=== PATIENT | female | born 1985 | race Caucasian/White ===

== ENCOUNTER 2018-10-08 13:51 | Emergency (ER) | payer OTHER ==
[~2018-10-08] VITALS: Ht 160 cm; Wt 74.8 kg
[~2018-10-08 13:51] MED LIST: AZIT250T PO; METH4TAB2 PO
[2018-10-08 14:18] LABS: BASO # 0.1 x10^3/uL (0.0-0.2); BASO % 1 % (0-3); EOS # 0.2 x10^3/uL (0.0-0.7); EOS % 2 % (0-3); HEMATOCRIT 42.9 % (36.0-47.0); HEMOGLOBIN 14.6 g/dL (12.0-15.5); LYMPH # 2.5 x10^3/uL (1.0-4.8); LYMPH % 28 % (24-48); MEAN CORPUSCULAR HEMOGLOBIN 30 pg (25-35); MEAN CORPUSCULAR HGB CONC 34 g/dL (31-37); MEAN CORPUSCULAR VOLUME 89 fL (79-100); MONO # 0.6 x10^3/uL (0.0-1.1); MONO % 6 % (0-9); NEUT # 5.7 x10^3uL (1.8-7.7); NEUT % 63 % (31-73); PLATELET COUNT 170 x10^3/uL (140-400); RED BLOOD COUNT 4.83 x10^6/uL (3.50-5.40); RED CELL DISTRIBUTION WIDTH 13.5 % (11.5-14.5); WHITE BLOOD COUNT 9.2 x10^3/uL (4.0-11.0)
--- NOTE | 2018-10-08 14:24 | PHYS DOC ---
Past History Past Medical History: Depression Past Surgical History: No Surgical History Alcohol Use: Rarely Drug Use: None Adult General Chief Complaint Chief Complaint: CHEST PAIN HPI HPI 33-year-old female presents with chest pain. Patient states that she has had central chest pain that started 2 days ago. It is intermittent. She describes it as a tightness. She denies shortness of breath or diaphoresis. She has had pain like this before and was diagnosed with "inflamed chest" and placed on prednisone for a week. This resolved her symptoms previously. Patient has no cardiac history. She denies any drug use. Nothing seems to make the pain better or worse except pressing on the area does increase the pain. She denies any rash , fever or chills. Review of Systems Review of Systems Constitutional: Denies fever or chills [] Eyes: Denies change in visual acuity, redness, or eye pain [] HENT: Denies nasal congestion or sore throat [] Respiratory: Denies cough or shortness of breath [] Cardiovascular: No additional information not addressed in HPI [] GI: Denies abdominal pain, nausea, vomiting, bloody stools or diarrhea [] : Denies dysuria or hematuria [] Musculoskeletal: Denies back pain or joint pain [] Integument: Denies rash or skin lesions [] Neurologic: Denies headache, focal weakness or sensory changes [] Endocrine: Denies polyuria or polydipsia [] All other systems were reviewed and found to be within normal limits, except as documented in this note. Allergies Allergies Allergies Coded Allergies Type Severity Reaction Last Updated Verified amoxicillin Allergy Severe hives & rash 11/24/14 Yes clavulanic acid Allergy Severe hives & rash 11/24/14 Yes Physical Exam Physical Exam Constitutional: Well developed, well nourished, no acute distress, non-toxic appearance. [] HENT: Normocephalic, atraumatic, bilateral external ears normal, oropharynx moist, no oral exudates, nose normal. [] Eyes: PERRLA, EOMI, conjunctiva normal, no discharge. [] Neck: Normal range of motion, no tenderness, supple, no stridor. [] Cardiovascular:Heart rate regular rhythm, no murmur [] Lungs & Thorax: Bilateral breath sounds clear to auscultation. Mid sternal tenderness with palpation. [] Abdomen: Bowel sounds normal, soft, no tenderness, no masses, no pulsatile masses. [] Skin: Warm, dry, no erythema, no rash. [] Back: No tenderness, no CVA tenderness. [] Extremities: No tenderness, no cyanosis, no clubbing, ROM intact, no edema. [] Neurologic: Alert and oriented X 3, normal motor function, normal sensory function, no focal deficits noted. [] Psychologic: Affect normal, judgement normal, mood normal. [] Current Patient Data Vital Signs Vital Signs Date Time Temp Pulse Resp B/P (MAP) Pulse Ox O2 Delivery O2 Flow Rate FiO2 10/08/18 14:17 97.9 71 18 98 Room Air Lab Results Laboratory Tests Test 10/08/18 14:08 White Blood Count 9.2 x10^3/uL (4.0-11.0) Red Blood Count 4.83 x10^6/uL (3.50-5.40) Hemoglobin 14.6 g/dL (12.0-15.5) Hematocrit 42.9 % (36.0-47.0) Mean Corpuscular Volume 89 fL (79-100) Mean Corpuscular Hemoglobin 30 pg (25-35) Mean Corpuscular Hemoglobin Concent 34 g/dL (31-37) Red Cell Distribution Width 13.5 % (11.5-14.5) Platelet Count 170 x10^3/uL (140-400) Neutrophils (%) (Auto) 63 % (31-73) Lymphocytes (%) (Auto) 28 % (24-48) Monocytes (%) (Auto) 6 % (0-9) Eosinophils (%) (Auto) 2 % (0-3) Basophils (%) (Auto) 1 % (0-3) Neutrophils # (Auto) 5.7 x10^3uL (1.8-7.7) Lymphocytes # (Auto) 2.5 x10^3/uL (1.0-4.8) Monocytes # (Auto) 0.6 x10^3/uL (0.0-1.1) Eosinophils # (Auto) 0.2 x10^3/uL (0.0-0.7) Basophils # (Auto) 0.1 x10^3/uL (0.0-0.2) EKG EKG Sinus rhythm, rate 54, normal axis, no ST elevations or depressions.[] Radiology/Procedures Radiology/Procedures [] Impressions: Chest, 2 views, 10/08/2018: HISTORY: Chest pain The heart size is normal. No pulmonary infiltrate is seen. There is no evidence of pleural fluid. IMPRESSION: No acute cardiopulmonary abnormality is detected. Electronically signed by: Brandon Blair MD (10/08/2018 3:07 PM) [facility] DICTATED AND SIGNED BY: BRANDON BLAIR MD DATE: 10/08/18 [id number] CC: TANI GONZALEZ DO; KAZ CARSON DO ~ Course & Med Decision Making Course & Med Decision Making Pertinent Labs and Imaging studies reviewed. (See chart for details) The patient's labs are unremarkable. Her troponin is negative. Her chest x-rays negative. Her EKG is unremarkable. The chest inflammation at the patient previously described sounds like pleurisy or a musculoskeletal inflammatory process. It is not unreasonable to do 5 days of steroids. I will discharge her with 30 mg of prednisone daily for 5 days. She is stable for discharge at this time. [] Dragon Disclaimer Dragon Disclaimer This electronic medical record was generated, in whole or in part, using a voice recognition dictation system. Departure Departure: Impression: Primary Impression: Chest wall pain Disposition: HOME, SELF-CARE Condition: STABLE Referrals: TANI GONZALEZ DO (PCP) Patient Instructions: Pleurisy, Psgv-ey-Xyvy Scripts Prednisone (PREDNISONE) 10 Mg Tablet 30 MG PO DAILY for pleurisy for 5 Days, #15 TAB Prov: KAZ CARSON DO 10/08/18 KAZ CARSON DO Oct 08, 2018 14:24
[2018-10-08 14:31] LABS: ALBUMIN 3.8 g/dL (3.4-5.0); ALBUMIN/GLOBULIN RATIO 1.1 (1.0-1.7); CALCIUM 8.8 mg/dL (8.5-10.1); CREATININE 0.9 mg/dL (0.6-1.0); POTASSIUM 3.9 mmol/L (3.5-5.1); TOTAL BILIRUBIN 0.3 mg/dL (0.2-1.0); TOTAL PROTEIN 7.2 g/dL (6.4-8.2)
--- NOTE | 2018-10-08 15:10 | RAD ---
Chest, 2 views, 10/08/2018: HISTORY: Chest pain The heart size is normal. No pulmonary infiltrate is seen. There is no evidence of pleural fluid. IMPRESSION: No acute cardiopulmonary abnormality is detected. Electronically signed by: Brandon Blair MD (10/08/2018 3:07 PM) [facility]
[2018-10-08] MEDS ORDERED: PRED-220 PO (15:21)
[2018-10-08 15:33] VITALS: BP 109/69
--- NOTE | 2018-10-09 13:10 | EKG ---
[address] [address] Test Date: 2018-10-08 Test Time: 14:14:57 Pat Name: DALTON BARRAGAN Department: Room: Gender: F Manager Registration: : 1985 Requested By: KAZ CARSON Order Number: [id number] Reading MD: Kenneth Gaines MD Measurements Intervals [place] Rate: 54 P: 36 VT: 142 QRS: 47 QRSD: 76 T: 39 QT: 424 QTc: 404 Interpretive Statements SINUS RHYTHM NON-SPECIFIC ST/T CHANGES Electronically Signed On 10-10-2018 9:10:10 CDT by Kenneth Gaines MD
== END 2018-10-08 15:37 | disposition home or self-care (01) ==
LOC: ER 13:51
DX: R07.89 Other chest pain (principal); F32.9 Major depressive disorder, single episode, unspecified; Z88.1 Allergy status to other antibiotic agents
CPT/HCPCS: 36415; 71046; 80053; 81025; 84484; 85025; 93005; 99284

== ENCOUNTER 2019-01-17 12:24 | Emergency (ER) | payer OTHER ==
[~2019-01-17 12:24] MED LIST changes: +PRED-220 PO
[2019-01-17 12:39] VITALS: BP 124/68
[2019-01-17] MEDS ORDERED: FLUC150T PO (12:44)
--- NOTE | 2019-01-17 12:45 | PHYS DOC ---
Past History Past Medical History: Depression Past Surgical History: No Surgical History Alcohol Use: Rarely Drug Use: None Adult General Chief Complaint Chief Complaint: URINARY FREQUENCY HPI HPI Patient is a 34-year-old female who presents with complaint of vaginal itching and thick discharge. Patient states that she has a history of yeast infections and she was recently started on Keflex. She states that symptoms are exactly like prior yeast infections and she states that she typically will get a yeast infection when she takes antibiotics.[] Review of Systems Review of Systems Constitutional: Denies fever or chills [] Respiratory: Denies cough or shortness of breath [] Cardiovascular: No additional information not addressed in HPI [] : Positive vaginal itching and discharge[] Allergies Allergies Allergies Coded Allergies Type Severity Reaction Last Updated Verified amoxicillin Allergy Severe hives & rash 11/24/14 Yes clavulanic acid Allergy Severe hives & rash 11/24/14 Yes Physical Exam Physical Exam Constitutional: Well developed, well nourished, no acute distress, non-toxic appearance. [] Cardiovascular:Heart rate regular rhythm, no murmur [] Lungs & Thorax: Bilateral breath sounds clear to auscultation [] Skin: Warm, dry, no erythema, no rash. [] EKG EKG [] Radiology/Procedures Radiology/Procedures [] Course & Med Decision Making Course & Med Decision Making Pertinent Labs and Imaging studies reviewed. (See chart for details) [] Dragon Disclaimer Dragon Disclaimer This electronic medical record was generated, in whole or in part, using a voice recognition dictation system. Departure Departure: Impression: Primary Impression: Vaginal yeast infection Disposition: HOME, SELF-CARE Condition: STABLE Referrals: PCP,UNKNOWN (PCP) Patient Instructions: Vaginitis, Monilial Scripts Fluconazole (DIFLUCAN) 150 Mg Tablet 1 TAB PO ONCE for infection, #1 TAB 1 Refill Prov: MOMO EARL Jr. DO 01/17/19 MOMO EARL Jr. DO Jan 17, 2019 12:45
== END 2019-01-17 12:51 | disposition home or self-care (01) ==
LOC: ER 12:24
DX: B37.3 Candidiasis of vulva and vagina (principal); Z88.1 Allergy status to other antibiotic agents
CPT/HCPCS: 99283

== ENCOUNTER 2019-03-24 19:53 | Emergency (ER) | payer OTHER ==
[~2019-03-24] VITALS: Ht 160 cm; Wt 79.0 kg
[~2019-03-24 19:53] MED LIST changes: +FLUC150T PO
[2019-03-24 21:42] LABS: U PREG PATIENT NEGATIVE (NEG)
[2019-03-24 21:45] LABS: BACTERIA,URINE FEW /HPF (0-FEW); BILIRUBIN,URINE NEG (NEG); CLARITY,URINE HAZY; COLOR,URINE YELLOW; GLUCOSE,URINE NEG (NEG); NITRITE,URINE NEG (NEG); RBC,URINE OCC /HPF (0-2); SQUAMOUS EPITHELIAL CELL,UR FEW /LPF; UROBILINOGEN,URINE 0.2 mg/dL (0.2 mg/dL); WBC,URINE OCC /HPF (0-4)
[2019-03-24 21:59] LABS: BARBITURATES NEG (NEG); BENZODIAZEPINES NEG (NEG); CANNABINOIDS NEG (NEG); COCAINE NEG (NEG); METHADONE NEG (NEG); OPIATES NEG (NEG); PHENCYCLIDINE NEG (NEG)
[2019-03-24 22:13] LABS: AMPHETAMINE/METHAMPHETAMINE NEG (NEG)
--- NOTE | 2019-03-25 00:41 | ED.ADGEN ---
Past History Past Medical History: Anxiety, Depression Past Surgical History: Cholecystectomy Alcohol Use: Occasionally Drug Use: None Adult General Chief Complaint Chief Complaint ".. I ve been sick since sunday... diarrhea.. abdomen discomfort..." HPI HPI Patient is a 34 year old female who presents with above hx and complaints of abdomen whitehead. Follows at [place]. Hx. cholecystectomy. No history of bad food intake. No history of travel. No specific ill contacts. Patient up-to-date with vaccinations. Review of Systems Review of Systems Constitutional: Denies fever or chills [] Eyes: Denies change in visual acuity, redness, or eye pain [] HENT: Denies nasal congestion or sore throat [] Respiratory: Denies cough or shortness of breath [] Cardiovascular: No additional information not addressed in HPI [] GI: Plaints of mild generalized abdominal pain, nausea, and diarrhea [] : Denies dysuria or hematuria [] Musculoskeletal: Denies back pain or joint pain [] Integument: Denies rash or skin lesions [] Neurologic: Denies headache, focal weakness or sensory changes [] Endocrine: Denies polyuria or polydipsia [] All other systems were reviewed and found to be within normal limits, except as documented in this note. Family History Family History Noncontributory Current Medications Current Medications Current Medications Medications (Trade) Dose Ordered Sig/Adan Start Time Stop Time Status Last Admin Dose Admin Famotidine (Pepcid Vial) 20 mg 1X ONCE 03/25/19 01:00 03/25/19 01:01 DC 03/25/19 01:49 20 MG Lactated Ringer's 1,000 ml @ 1,000 mls/hr Q1H 03/25/19 01:00 03/25/19 01:59 DC 03/25/19 01:49 1,000 MLS/HR Ondansetron HCl (Zofran) 8 mg 1X ONCE 03/25/19 01:00 03/25/19 01:01 DC 03/25/19 01:49 8 MG Allergies Allergies Allergies Coded Allergies Type Severity Reaction Last Updated Verified amoxicillin Allergy Severe hives & rash 11/24/14 Yes clavulanic acid Allergy Severe hives & rash 11/24/14 Yes vancomycin Allergy Intermediate Rash 03/24/19 Yes Physical Exam Physical Exam Constitutional: Moderate distress, non-toxic appearance. [] HENT: Normocephalic, atraumatic, bilateral external ears normal, oropharynx moist, no oral exudates, nose normal. [] Eyes: PERRLA, EOMI, conjunctiva normal, no discharge. [] Neck: Normal range of motion, no tenderness, supple, no stridor. [] Cardiovascular:Heart rate regular rhythm, no murmur [] Lungs & Thorax: Bilateral breath sounds clear to auscultation [] Abdomen: Bowel sounds are hyperactive soft, mild generalized tenderness. Old surgery scars. No focal rebound. Skin: Warm, dry, no erythema, no rash. [] Back: No tenderness, no CVA tenderness. [] Extremities: No tenderness, no cyanosis, no clubbing, ROM intact, no edema. [] Neurologic: Alert and oriented X 3, normal motor function, normal sensory function, no focal deficits noted. [] Psychologic: Affect normal, judgement normal, mood normal. [] Current Patient Data Vital Signs Vital Signs Date Time Temp Pulse Resp B/P (MAP) Pulse Ox O2 Delivery O2 Flow Rate FiO2 03/25/19 03:15 58 18 115/82 (93) 97 Room Air 03/24/19 19:53 98.3 Lab Results Laboratory Tests Test 03/24/19 20:45 03/24/19 21:00 Urine Collection Type Unknown Urine Color Yellow Urine Clarity Hazy Urine pH 6.0 Urine Specific [place] >=1.030 Urine Protein Neg (NEG-TRACE) Urine Glucose (UA) Neg mg/dL (NEG) Urine Ketones (Stick) Neg mg/dL (NEG) Urine Blood Neg (NEG) Urine Nitrite Neg (NEG) Urine Bilirubin Neg (NEG) Urine Urobilinogen Dipstick 0.2 mg/dL (0.2 mg/dL) Urine Leukocyte Esterase Neg (NEG) Urine RBC Occ /HPF (0-2) Urine WBC Occ /HPF (0-4) Urine Squamous Epithelial Cells Few /LPF Urine Bacteria Few /HPF (0-FEW) Urine Mucus Slight /LPF Urine Test Negative (NEG) Urine Opiates Screen Neg (NEG) Urine Methadone Screen Neg (NEG) Urine Barbiturates Neg (NEG) Urine Phencyclidine Screen Neg (NEG) Urine Amphetamine/Methamphetamine Neg (NEG) Urine Benzodiazepines Screen Neg (NEG) Urine Cocaine Screen Neg (NEG) Urine Cannabinoids Screen Neg (NEG) Urine Ethyl Alcohol Neg (NEG) White Blood Count 9.5 x10^3/uL (4.0-11.0) Red Blood Count 4.65 x10^6/uL (3.50-5.40) Hemoglobin 14.6 g/dL (12.0-15.5) Hematocrit 42.8 % (36.0-47.0) Mean Corpuscular Volume 92 fL (79-100) Mean Corpuscular Hemoglobin 31 pg (25-35) Mean Corpuscular Hemoglobin Concent 34 g/dL (31-37) Red Cell Distribution Width 12.5 % (11.5-14.5) Platelet Count 190 x10^3/uL (140-400) Neutrophils (%) (Auto) 59 % (31-73) Lymphocytes (%) (Auto) 30 % (24-48) Monocytes (%) (Auto) 7 % (0-9) Eosinophils (%) (Auto) 3 % (0-3) Basophils (%) (Auto) 1 % (0-3) Neutrophils # (Auto) 5.6 x10^3uL (1.8-7.7) Lymphocytes # (Auto) 2.9 x10^3/uL (1.0-4.8) Monocytes # (Auto) 0.7 x10^3/uL (0.0-1.1) Eosinophils # (Auto) 0.2 x10^3/uL (0.0-0.7) Basophils # (Auto) 0.1 x10^3/uL (0.0-0.2) Sodium Level 141 mmol/L (136-145) Potassium Level 4.1 mmol/L (3.5-5.1) Chloride Level 103 mmol/L (98-107) Carbon Dioxide Level 29 mmol/L (21-32) Anion Gap 9 (6-14) Blood Urea Nitrogen 18 mg/dL (7-20) Creatinine 1.0 mg/dL (0.6-1.0) Estimated GFR (Cockcroft-Gault) 64.3 Glucose Level 74 mg/dL (70-99) Calcium Level 8.8 mg/dL (8.5-10.1) Total Bilirubin 0.1 mg/dL (0.2-1.0) L Direct Bilirubin < 0.1 mg/dL (0.0-0.2) Aspartate Amino Transferase (AST) 22 U/L (15-37) Alanine Aminotransferase (ALT) 22 U/L (14-59) Alkaline Phosphatase 89 U/L (46-116) Troponin I Quantitative < 0.017 ng/mL (0-0.055) Total Protein 7.4 g/dL (6.4-8.2) Albumin 3.6 g/dL (3.4-5.0) Amylase Level 52 U/L (25-115) Lipase 160 U/L (73-393) EKG EKG [] Radiology/Procedures Radiology/Procedures [][address] [address] IMAGING REPORT Signed PATIENT: DALTON BARRAGAN EACCOUNT: [id number] : 1985 LOCATION: ER AGE: 34 SEX: F EXAM STATUS: REG ER ORD. PHYSICIAN: PENNY CHILDRESS MD REASON: pain PROCEDURE: ACUTE ABDOMEN SERIES PA chest and AP upright supine abdomen x-rays HISTORY: Abdominal pain. FINDINGS: Heart and mediastinum are unremarkable. No pulmonary opacities or pleural effusions. No pneumoperitoneum. Cholecystectomy clips. Mild volume of stool. No dilated bowel loops or abnormal air-fluid levels. Bones and soft tissues are unremarkable. IMPRESSION: No evidence of bowel obstruction. No acute process in the chest. Electronically signed by: Ki Toussaint MD (03/25/2019 3:56 AM) [facility] DICTATED AND SIGNED BY: KI TOUSSAINT MD DATE: 03/25/19 0356 CC: PENNY CHILDRESS MD; PCP,UNKNOWN ~ Course & Med Decision Making Course & Med Decision Making Pertinent Labs and Imaging studies reviewed. (See chart for details) She stay on a clear fluid diet only for the next 2 days. No solids no milk products. Must allow bowel rest. Push fluids. Take Tylenol and ibuprofen for discomfort. For nausea and vomiting take Zofran 8 mg up 4 times a day. Follow-up primary care. Return if any concerns. [] Final Impression Final Impression 1. Abdomen Pain 2. Diarrhea[] 3. Viral Syndrome Dragon Disclaimer Dragon Disclaimer This electronic medical record was generated, in whole or in part, using a voice recognition dictation system. Dragon Disclaimer This chart was dictated in whole or in part using Voice Recognition software in a busy, high-work load, and often noisy Emergency Department environment. It may contain unintended and wholly unrecognized errors or omissions. PENNY CHILDRESS MD Mar 25, 2019 00:41
[2019-03-25] MEDS ORDERED: FAMOTIDINE 20 MG/2 ML VIAL IVP ONE (01:00)
[2019-03-25] MEDS ORDERED: IV RINGERS SOLUTION,LACTATED 1,000 ML IV SCH (01:00)
[2019-03-25] MEDS ORDERED: ONDANSETRON PF 4 MG/2 ML VIAL. IV ONE (01:00)
[2019-03-25 02:05] LABS: BASO # 0.1 x10^3/uL (0.0-0.2); BASO % 1 % (0-3); EOS # 0.2 x10^3/uL (0.0-0.7); EOS % 3 % (0-3); HEMATOCRIT 42.8 % (36.0-47.0); HEMOGLOBIN 14.6 g/dL (12.0-15.5); LYMPH # 2.9 x10^3/uL (1.0-4.8); LYMPH % 30 % (24-48); MEAN CORPUSCULAR HEMOGLOBIN 31 pg (25-35); MEAN CORPUSCULAR HGB CONC 34 g/dL (31-37); MEAN CORPUSCULAR VOLUME 92 fL (79-100); MONO # 0.7 x10^3/uL (0.0-1.1); MONO % 7 % (0-9); NEUT # 5.6 x10^3uL (1.8-7.7); NEUT % 59 % (31-73); PLATELET COUNT 190 x10^3/uL (140-400); RED BLOOD COUNT 4.65 x10^6/uL (3.50-5.40); RED CELL DISTRIBUTION WIDTH 12.5 % (11.5-14.5); WHITE BLOOD COUNT 9.5 x10^3/uL (4.0-11.0)
[2019-03-25 02:13] LABS: ALBUMIN 3.6 g/dL (3.4-5.0); ALK PHOS 89 U/L (46-116); ALT (SGPT) 22 U/L (14-59); AMYLASE 52 U/L (25-115); ANION GAP 9 (6-14); AST (SGOT) 22 U/L (15-37); BLOOD UREA NITROGEN 18 mg/dL (7-20); CALCIUM 8.8 mg/dL (8.5-10.1); CARBON DIOXIDE 29 mmol/L (21-32); CHLORIDE 103 mmol/L (98-107); GFR 64.3; GLUCOSE 74 mg/dL (70-99); LIPASE 160 U/L (73-393); SODIUM 141 mmol/L (136-145); TOTAL BILIRUBIN 0.1 mg/dL (0.2-1.0); TOTAL PROTEIN 7.4 g/dL (6.4-8.2)
[2019-03-25 02:26] LABS: DIRECT BILIRUBIN < 0.1 mg/dL (0.0-0.2); POTASSIUM 4.1 mmol/L (3.5-5.1)
[2019-03-25] MEDS ORDERED: HYDR-1179 PO (02:51)
[2019-03-25] MEDS ORDERED: ONDA8TAB9 PO (02:51)
[2019-03-25 03:15] VITALS: BP 115/82
--- NOTE | 2019-03-25 03:59 | RAD ---
PA chest and AP upright supine abdomen x-rays HISTORY: Abdominal pain. FINDINGS: Heart and mediastinum are unremarkable. No pulmonary opacities or pleural effusions. No pneumoperitoneum. Cholecystectomy clips. Mild volume of stool. No dilated bowel loops or abnormal air-fluid levels. Bones and soft tissues are unremarkable. IMPRESSION: No evidence of bowel obstruction. No acute process in the chest. Electronically signed by: Darinel Toussaint MD (03/25/2019 3:56 AM) [facility]
== END 2019-03-25 03:15 | disposition home or self-care (01) ==
LOC: ER 19:53
DX: B34.9 Viral infection, unspecified (principal); R19.7 Diarrhea, unspecified; Z90.49 Acquired absence of other specified parts of digestive tract; Z88.1 Allergy status to other antibiotic agents
CPT/HCPCS: 36415; 74022; 80048; 80076; 80307; 81001; 81025; 82150; 83690; 84484; 85025; 96361; 96374; 96375; 99285; J2405; J3490; J7120

== ENCOUNTER → 2019-05-20 | Outpatient (CLI) | payer OTHER ==
[~2019-05-20] MED LIST changes: +HYDR-1179 PO; +IOHEXOL 300 MG/ML 75 ML VIAL. IV ONE; +ONDA8TAB9 PO
--- NOTE | 2019-05-20 13:36 | RAD ---
RS Compliance Statement: One or more of the following individualized dose reduction techniques were utilized for this examination: 1. Automated exposure control 2. Adjustment of the mA and/or kV according to patient size 3. Use of iterative reconstruction technique CT head and maxillofacial without contrast 05/20/2019 12:00 AM INDICATION: Infection of the left eye. Headache. COMPARISON: CT head 12/18/2012 TECHNIQUE: Multiple axial CT images of the head were obtained from skull base through the vertex with and without intravenous contrast. Multiple axial CT images of the maxillofacial structures were obtained with and without intravenous contrast. Coronal and sagittal reformats are provided. FINDINGS: Head and maxillofacial: Ventricles, sulci and basal cisterns are within normal limits. There is no hydrocephalus. Willams-white matter differentiation is normal. There is no acute intracranial hemorrhage. There is no mass, mass effect or midline shift. Posterior fossa is normal in appearance. Left periorbital soft tissue swelling is identified. No intraorbital abnormality. Osseous orbits are intact. Globes are spherical and contour. There is no lens dislocation. Extraocular muscles are intact. No intraconal or extraconal mass is identified. Skull base is intact. Cavernous sinuses are normal in appearance. Nasal bones are intact. Nasal septum is predominantly midline. Mild mucosal thickening of the left sphenoid sinus is identified. Otherwise, paranasal sinuses are well aerated. No acute fracture of the paranasal sinuses is identified. Pterygoid plates are intact. IMPRESSION: 1. No acute intracranial hemorrhage. 2. Left sided preseptal periorbital cellulitis without post septal extension. There is no subperiosteal abscess. Electronically signed by: Sandra Quinteros MD (05/20/2019 1:33 PM) [facility]
== END | disposition home or self-care (01) ==
LOC: CT 12:31
PROVIDERS: ATTEND Optometrist
DX: L03.213 Periorbital cellulitis (principal); M79.89 Other specified soft tissue disorders
CPT/HCPCS: 70496; Q9967

== ENCOUNTER 2019-08-05 08:57 | Emergency (ER) | payer OTHER ==
[~2019-08-05] VITALS: Ht 160 cm; Wt 84.1 kg
[~2019-08-05 08:57] MED LIST changes: -IOHEXOL 300 MG/ML 75 ML VIAL. IV ONE
[2019-08-05] MEDS ORDERED: METOCLOPRAMIDE HCL 10 MG/2 ML VIAL. ONE (09:21)
[2019-08-05] MEDS ORDERED: diphenhydrAMINE 50 MG/ML VIAL ONE (09:21)
[2019-08-05] MEDS ORDERED: diphenhydrAMINE 50 MG/ML VIAL IVP ONE (09:30)
[2019-08-05] MEDS ORDERED: IV NORMAL SALINE 1,000ML 1,000 ML IV ONE (09:30)
[2019-08-05] MEDS ORDERED: METOCLOPRAMIDE HCL 10 MG/2 ML VIAL. IVP ONE (09:30)
[2019-08-05 09:45] LABS: BASO # 0.1 x10^3/uL (0.0-0.2); BASO % 1 % (0-3); EOS # 0.1 x10^3/uL (0.0-0.7); EOS % 2 % (0-3); HEMOGLOBIN 14.6 g/dL (12.0-15.5); LYMPH # 2.4 x10^3/uL (1.0-4.8); LYMPH % 24 % (24-48); MEAN CORPUSCULAR HEMOGLOBIN 30 pg (25-35); MEAN CORPUSCULAR HGB CONC 33 g/dL (31-37); MEAN CORPUSCULAR VOLUME 90 fL (79-100); MONO # 0.7 x10^3/uL (0.0-1.1); MONO % 7 % (0-9); NEUT # 6.5 x10^3uL (1.8-7.7); NEUT % 65 % (31-73); PLATELET COUNT 169 x10^3/uL (140-400); RED BLOOD COUNT 4.89 x10^6/uL (3.50-5.40); RED CELL DISTRIBUTION WIDTH 13.2 % (11.5-14.5); WHITE BLOOD COUNT 9.9 x10^3/uL (4.0-11.0)
--- NOTE | 2019-08-05 09:45 | PHYS DOC ---
Past History Past Medical History: Anxiety, Depression, Sinusitis Past Surgical History: Cholecystectomy, Other Additional Past Surgical Histo: left knee Alcohol Use: None Drug Use: None Adult General Chief Complaint Chief Complaint: HEADACHE HPI HPI 34-year-old female presents with headache since yesterday afternoon. The patient is . Her last menstrual period was in May. She has had a positive home test as well as a confirmed office test. She is not having any bleeding or cramping. She is therefore a headache she states is a pressure sen sation behind her eyes. This is typical of her headaches. She got headaches frequently with her previous . She knows she is limited in what she can take so she came here for treatment. The patient has been eating and drinking normally. She has been trying to stay hydrated. She denies any falls or trauma. Denies fever or chills. Review of Systems Review of Systems Constitutional: Denies fever or chills [] Eyes: Denies change in visual acuity, redness, or eye pain [] HENT: Denies nasal congestion or sore throat [] Respiratory: Denies cough or shortness of breath [] Cardiovascular: No additional information not addressed in HPI [] GI: Denies abdominal pain, nausea, vomiting, bloody stools or diarrhea [] : Denies dysuria or hematuria [] Musculoskeletal: Denies back pain or joint pain [] Integument: Denies rash or skin lesions [] Neurologic: Headache. Denies focal weakness or sensory changes [] Endocrine: Denies polyuria or polydipsia [] All other systems were reviewed and found to be within normal limits, except as documented in this note. Current Medications Current Medications Current Medications Medications (Trade) Dose Ordered Sig/Adan Start Time Stop Time Status Last Admin Dose Admin Diphenhydramine HCl (Benadryl) 50 mg STK-MED ONCE 08/05/19 09:21 08/05/19 09:21 DC Metoclopramide HCl (Reglan Vial) 10 mg STK-MED ONCE 08/05/19 09:21 08/05/19 09:22 DC Sodium Chloride 1,000 ml @ 1,000 mls/hr 1X ONCE 08/05/19 09:30 08/05/19 10:29 08/05/19 09:31 1,000 MLS/HR Allergies Allergies Allergies Coded Allergies Type Severity Reaction Last Updated Verified amoxicillin Allergy Severe hives & rash 08/05/19 Yes clavulanic acid Allergy Severe hives & rash 08/05/19 Yes vancomycin Allergy Intermediate Rash 08/05/19 Yes Physical Exam Physical Exam Constitutional: Well developed, well nourished, no acute distress, non-toxic appearance. [] HENT: Normocephalic, atraumatic, bilateral external ears normal, oropharynx moist, no oral exudates, nose normal. [] Eyes: Photophobia. PERRLA, EOMI, conjunctiva normal, no discharge. [] Neck: Normal range of motion, no tenderness, supple, no stridor. [] Cardiovascular: Heart rate regular rhythm, no murmur [] Lungs & Thorax: Bilateral breath sounds clear to auscultation [] Abdomen: Bowel sounds normal, soft, no tenderness, no masses, no pulsatile masses. [] Skin: Warm, dry, no erythema, no rash. [] Back: No tenderness, no CVA tenderness. [] Extremities: No tenderness, no cyanosis, no clubbing, ROM intact, no edema. [] Neurologic: Alert and oriented X 3, normal motor function, normal sensory function, no focal deficits noted. [] Psychologic: Affect normal, judgement normal, mood normal. [] Current Patient Data Vital Signs Vital Signs Date Time Temp Pulse Resp B/P (MAP) Pulse Ox O2 Delivery O2 Flow Rate FiO2 08/05/19 09:05 98.8 95 18 119/86 (97) 98 Room Air EKG EKG [] Radiology/Procedures Radiology/Procedures [] Course & Med Decision Making Course & Med Decision Making Pertinent Labs and Imaging studies reviewed. (See chart for details) Patient's labs are unremarkable. Her urinalysis is suggestive of UTI. Given her , I will treat her with Keflex for 3 days. For her headache and given a 1 L normal saline, 10 mg of Reglan, and 25 mg of Benadryl. Her headache has reduced from an 8 to a 5. She feels well enough to go home. She is stable for discharge at this time. [] Dragon Disclaimer Dragon Disclaimer This electronic medical record was generated, in whole or in part, using a voice recognition dictation system. Departure Departure: Impression: Primary Impression: Headache Additional Impression: UTI (urinary tract infection) during Disposition: HOME, SELF-CARE Condition: IMPROVED Referrals: TAMMY BUCKLEY PA-C (PCP) Patient Instructions: - Urinary Tract Infection Scripts Fluconazole (DIFLUCAN) 150 Mg Tablet 1 TAB PO ONCE for yeast infection, #1 TAB 1 Refill Prov: KAZ CARSON DO 08/05/19 Cephalexin (KEFLEX) 500 Mg Capsule 1 CAP PO TID for UTI for 5 Days, #15 CAP 0 Refills Prov: KAZ CARSON DO 08/05/19 Problem Qualifiers Primary Impression: Headache Headache type: other vascular headache Qualified Codes: G44.1 - Vascular headache, not elsewhere classified Additional Impression: UTI (urinary tract infection) during Trimester: first trimester Qualified Codes: O23.41 - Unspecified infection of urinary tract in , first trimester KAZ CARSON DO Aug 05, 2019 09:45
[2019-08-05 09:52] LABS: CALCIUM 8.8 mg/dL (8.5-10.1); CREATININE 0.8 mg/dL (0.6-1.0); GFR 83.1; POTASSIUM 3.8 mmol/L (3.5-5.1)
[2019-08-05 09:56] LABS: BACTERIA,URINE MOD /HPF (0-FEW); BILIRUBIN,URINE NEG (NEG); CLARITY,URINE CLOUDY; COLOR,URINE YELLOW; GLUCOSE,URINE NEG (NEG); NITRITE,URINE NEG (NEG); SQUAMOUS EPITHELIAL CELL,UR MANY /LPF; UROBILINOGEN,URINE 0.2 mg/dL (0.2 mg/dL)
[2019-08-05 09:58] LABS: ALBUMIN 3.6 g/dL (3.4-5.0); ALBUMIN/GLOBULIN RATIO 0.9 (1.0-1.7); TOTAL BILIRUBIN 0.2 mg/dL (0.2-1.0); TOTAL PROTEIN 7.6 g/dL (6.4-8.2)
[2019-08-05] MEDS ORDERED: FLUC150T PO (11:07)
[2019-08-05] MEDS ORDERED: CEPH-264 PO (11:07)
[2019-08-05 11:15] VITALS: BP 112/60
== END 2019-08-05 11:15 | disposition home or self-care (01) ==
LOC: ER 08:57
DX: O26.891 Other specified pregnancy related conditions, first trimester (principal); G44.1 Vascular headache, not elsewhere classified; O23.41 Unspecified infection of urinary tract in pregnancy, first trimester; O99.341 Other mental disorders complicating pregnancy, first trimester; F41.9 Anxiety disorder, unspecified; F32.9 Major depressive disorder, single episode, unspecified; Z3A.00 Weeks of gestation of pregnancy not specified; Z88.1 Allergy status to other antibiotic agents; Z88.8 Allergy status to other drugs, medicaments and biological substances
CPT/HCPCS: 36415; 80053; 81001; 85025; 87086; 96374; 96375; 99285; J1200; J2765; J7030

== ENCOUNTER 2019-08-09 01:08 | Emergency (ER) | payer OTHER ==
[~2019-08-09] VITALS: Ht 160 cm; Wt 83.9 kg
[~2019-08-09 01:08] MED LIST changes: +CEPH-264 PO
[2019-08-09] MEDS ORDERED: ONDANSETRON PF 4 MG/2 ML VIAL. ONE (01:10)
[2019-08-09] MEDS ORDERED: FAMOTIDINE 20 MG/2 ML VIAL ONE (01:11)
[2019-08-09] MEDS ORDERED: IV NORMAL SALINE 1,000ML 1,000 ML IV ONE (01:30)
[2019-08-09 01:43] LABS: BASO # 0.1 x10^3/uL (0.0-0.2); BASO % 1 % (0-3); EOS # 0.1 x10^3/uL (0.0-0.7); EOS % 1 % (0-3); HEMATOCRIT 45.3 % (36.0-47.0); HEMOGLOBIN 15.5 g/dL (12.0-15.5); LYMPH % 7 % (24-48); MEAN CORPUSCULAR HEMOGLOBIN 30 pg (25-35); MEAN CORPUSCULAR HGB CONC 34 g/dL (31-37); MEAN CORPUSCULAR VOLUME 88 fL (79-100); MONO # 0.5 x10^3/uL (0.0-1.1); MONO % 4 % (0-9); NEUT # 11.3 x10^3uL (1.8-7.7); NEUT % 87 % (31-73); PLATELET COUNT 172 x10^3/uL (140-400); RED BLOOD COUNT 5.14 x10^6/uL (3.50-5.40); RED CELL DISTRIBUTION WIDTH 13.3 % (11.5-14.5); WHITE BLOOD COUNT 12.9 x10^3/uL (4.0-11.0)
[2019-08-09] MEDS ORDERED: FAMOTIDINE 20 MG/2 ML VIAL IVP ONE (01:45)
[2019-08-09] MEDS ORDERED: ONDANSETRON PF 4 MG/2 ML VIAL. IVP ONE (01:45)
[2019-08-09 01:50] LABS: CREATININE 0.8 mg/dL (0.6-1.0); GFR 83.1
[2019-08-09 01:55] LABS: ALBUMIN/GLOBULIN RATIO 1.1 (1.0-1.7); MAGNESIUM 1.8 mg/dL (1.8-2.4); TOTAL BILIRUBIN 0.5 mg/dL (0.2-1.0); TOTAL PROTEIN 7.8 g/dL (6.4-8.2)
[2019-08-09 01:56] LABS: BILIRUBIN,URINE NEG (NEG); CLARITY,URINE CLEAR; COLOR,URINE YELLOW; GLUCOSE,URINE NEG (NEG)
[2019-08-09 01:57] LABS: BACTERIA,URINE FEW /HPF (0-FEW); NITRITE,URINE NEG (NEG); RBC,URINE OCC /HPF (0-2); SQUAMOUS EPITHELIAL CELL,UR FEW /LPF; WBC,URINE OCC /HPF (0-4)
[2019-08-09 02:01] LABS: INFLUENZA A PATIENT NEGATIVE (NEGATIVE); INFLUENZA B PATIENT NEGATIVE (NEGATIVE)
[2019-08-09 02:15] VITALS: BP 114/78
[2019-08-09] MEDS ORDERED: ONDA4TAB12 PO (02:18)
[2019-08-09] MEDS ORDERED: FAMO-63 PO (02:18)
--- NOTE | 2019-08-09 02:19 | PHYS DOC ---
Past History Past Medical History: Anxiety, Depression, Sinusitis Past Surgical History: Cholecystectomy, Other Additional Past Surgical Histo: left knee Smoking: Cigarettes Alcohol Use: None Drug Use: None Adult General Chief Complaint Chief Complaint: VOMITING IN HPI HPI 34-year-old female presents as with report of nausea and vomiting 3 episodes which started at 1700 this evening. Patient does report some generalized malaise. Patient is unsure if she might have contracted influenza or if she is just experiencing morning sickness. Denies trauma. Denies fever or chills. Patient does report recent diagnosis of urinary tract infection for which she is currently taking Keflex. Denies vaginal bleeding or discharge. Review of Systems Review of Systems Constitutional: Denies fever or chills; reports generalized malaise Eyes: Denies redness or eye pain HENT: Denies nasal congestion or sore throat Respiratory: Reports cough; denies shortness of breath Cardiovascular: Denies chest pain or palpitations GI: Denies abdominal pain; reports nausea and vomiting /COUNTY NURSE: Denies dysuria or hematuria; reports ; denies vaginal bleeding or discharge Musculoskeletal: Denies back pain or joint pain Integument: Denies rash or skin lesions Neurologic: Denies headache, focal weakness or sensory changes Complete systems were reviewed and found to be within normal limits, except as documented in this note. Current Medications Current Medications Current Medications Medications (Trade) Dose Ordered Sig/Adan Start Time Stop Time Status Last Admin Dose Admin Famotidine (Pepcid Vial) 20 mg 1X ONCE 08/09/19 01:45 08/09/19 01:50 DC 08/09/19 01:32 20 MG Ondansetron HCl (Zofran) 4 mg 1X ONCE 08/09/19 01:45 08/09/19 01:50 DC 08/09/19 01:33 4 MG Sodium Chloride 1,000 ml @ 1,000 mls/hr 1X ONCE 08/09/19 01:30 08/09/19 02:29 08/09/19 01:31 1,000 MLS/HR Allergies Allergies Allergies Coded Allergies Type Severity Reaction Last Updated Verified amoxicillin Allergy Severe hives & rash 08/05/19 Yes clavulanic acid Allergy Severe hives & rash 08/05/19 Yes vancomycin Allergy Intermediate Rash 08/05/19 Yes Physical Exam Physical Exam Constitutional: Well developed, well nourished, no acute distress, non-toxic appearance HENT: Normocephalic, atraumatic, oropharynx moist Eyes: Conjunctiva normal, no discharge Neck: Normal range of motion, no tenderness, supple Cardiovascular: Heart rate normal, regular rhythm Lungs & Thorax: Bilateral breath sounds clear to auscultation, no wheezing/rales/rhonchi Abdomen: Soft, no tenderness, no guarding/rebound tenderness/distention Skin: Warm, dry, no erythema, no rash Extremities: No tenderness, ROM intact, no edema Neurologic: Alert and oriented X 3, no focal deficits noted Psychologic: Affect normal, judgement normal Current Patient Data Vital Signs Vital Signs Date Time Temp Pulse Resp B/P (MAP) Pulse Ox O2 Delivery O2 Flow Rate FiO2 08/09/19 01:08 97.5 100 18 112/60 (77) 98 Room Air Lab Results Laboratory Tests Test 08/09/19 01:14 08/09/19 01:22 08/09/19 01:25 Urine Collection Type Unknown Urine Color Yellow Urine Clarity Clear Urine pH 8.5 Urine Specific Fitzpatrick 1.020 Urine Protein 30 mg/dl (NEG-TRACE) Urine Glucose (UA) Neg mg/dL (NEG) Urine Ketones (Stick) Trace mg/dL (NEG) Urine Blood Neg (NEG) Urine Nitrite Neg (NEG) Urine Bilirubin Neg (NEG) Urine Urobilinogen Dipstick 1.0 mg/dL (0.2 mg/dL) Urine Leukocyte Esterase Neg (NEG) Urine RBC Occ /HPF (0-2) Urine WBC Occ /HPF (0-4) Urine Squamous Epithelial Cells Few /LPF Urine Bacteria Few /HPF (0-FEW) Urine Mucus Slight /LPF White Blood Count 12.9 x10^3/uL (4.0-11.0) H Red Blood Count 5.14 x10^6/uL (3.50-5.40) Hemoglobin 15.5 g/dL (12.0-15.5) Hematocrit 45.3 % (36.0-47.0) Mean Corpuscular Volume 88 fL (79-100) Mean Corpuscular Hemoglobin 30 pg (25-35) Mean Corpuscular Hemoglobin Concent 34 g/dL (31-37) Red Cell Distribution Width 13.3 % (11.5-14.5) Platelet Count 172 x10^3/uL (140-400) Neutrophils (%) (Auto) 87 % (31-73) H Lymphocytes (%) (Auto) 7 % (24-48) L Monocytes (%) (Auto) 4 % (0-9) Eosinophils (%) (Auto) 1 % (0-3) Basophils (%) (Auto) 1 % (0-3) Neutrophils # (Auto) 11.3 x10^3uL (1.8-7.7) H Lymphocytes # (Auto) 1.0 x10^3/uL (1.0-4.8) Monocytes # (Auto) 0.5 x10^3/uL (0.0-1.1) Eosinophils # (Auto) 0.1 x10^3/uL (0.0-0.7) Basophils # (Auto) 0.1 x10^3/uL (0.0-0.2) Sodium Level 138 mmol/L (136-145) Potassium Level 4.0 mmol/L (3.5-5.1) Chloride Level 101 mmol/L (98-107) Carbon Dioxide Level 21 mmol/L (21-32) Anion Gap 16 (6-14) H Blood Urea Nitrogen 16 mg/dL (7-20) Creatinine 0.8 mg/dL (0.6-1.0) Estimated GFR (Cockcroft-Gault) 83.1 BUN/Creatinine Ratio 20 (6-20) Glucose Level 107 mg/dL (70-99) H Calcium Level 9.0 mg/dL (8.5-10.1) Magnesium Level 1.8 mg/dL (1.8-2.4) Total Bilirubin 0.5 mg/dL (0.2-1.0) Aspartate Amino Transferase (AST) 23 U/L (15-37) Alanine Aminotransferase (ALT) 29 U/L (14-59) Alkaline Phosphatase 69 U/L (46-116) Total Protein 7.8 g/dL (6.4-8.2) Albumin 4.0 g/dL (3.4-5.0) Albumin/Globulin Ratio 1.1 (1.0-1.7) Lipase 116 U/L (73-393) Influenza Type A (Rapid) Negative (NEGATIVE) Influenza Type B (Rapid) Negative (NEGATIVE) EKG EKG [] Radiology/Procedures Radiology/Procedures [] Course & Med Decision Making Course & Med Decision Making Pertinent Lab studies reviewed. (See chart for details) Patient presents as with report of nausea and vomiting which started at 1700 this evening. Abdomen non-peritoneal. Patient denies vaginal discharge or bleeding. Symptomatic treatment provided. IV fluid hydration given. Labs obtained and posted to chart. Rapid influenza negative. Patient stable for discharge with outpatient follow-up with PCP/OB. Discussed findings and plan with patient and friend, who acknowledge understanding and agreement. Dragon Disclaimer Dragon Disclaimer This electronic medical record was generated, in whole or in part, using a voice recognition dictation system. Departure Departure: Impression: Primary Impression: Nausea and vomiting Additional Impression: Disposition: HOME, SELF-CARE Condition: STABLE Referrals: NON,STAFF (PCP) Patient Instructions: ABCs of , Nausea and Vomiting, [id number] Scripts Famotidine (PEPCID) 20 Mg Tablet 1 TAB PO QHS for Gastritis, #20 TAB Prov: ASHLEY TANG DO 08/09/19 Ondansetron (ONDANSETRON ODT) 4 Mg Tab.rapdis 1 TAB PO PRN Q6-8HRS PRN for NAUSEA, #16 TAB Prov: ASHLEY TANG DO 08/09/19 Problem Qualifiers Primary Impression: Nausea and vomiting Vomiting type: unspecified Vomiting Intractability: non-intractable Q ualified Codes: R11.2 - Nausea with vomiting, unspecified Additional Impression: Weeks of gestation: unspecified Qualified Codes: Z34.90 - Encounter for supervision of normal , unspecified, unspecified trimester ASHLEY TANG DO Aug 09, 2019 02:19
== END 2019-08-09 02:45 | disposition home or self-care (01) ==
LOC: ER 01:08
DX: O21.9 Vomiting of pregnancy, unspecified (principal); O99.331 Smoking (tobacco) complicating pregnancy, first trimester; Z3A.00 Weeks of gestation of pregnancy not specified; Z88.1 Allergy status to other antibiotic agents
CPT/HCPCS: 36415; 80053; 81001; 83690; 83735; 84702; 85025; 87804; 96361; 96374; 96375; 99284; J2405; J3490; J7030

== ENCOUNTER 2020-12-16 08:58 | Emergency (ER) | payer OTHER ==
[~2020-12-16] VITALS: Ht 160 cm; Wt 88.8 kg
[~2020-12-16 08:58] MED LIST changes: +FAMO-63 PO; +ONDA4TAB12 PO
[2020-12-16 09:12] VITALS: BP 118/67
--- NOTE | 2020-12-16 09:15 | PHYS DOC ---
Past History Past Medical History: Anxiety, Depression, Sinusitis Past Surgical History: Cholecystectomy, Other Additional Past Surgical Histo: left knee Smoking: Cigarettes Alcohol Use: None Drug Use: None Adult General Chief Complaint Chief Complaint: CHEST PAIN HPI HPI Patient is a 35-year-old female presenting for chest pain. Onset was 4 hours prior to arrival that was noted shortly after waking up. No inciting event, trauma or ingestion. Certain body movements make worse, laying still makes better. Breathing does not alter pain. States pain is sharp and located over sternal bone, is reproducible with palpation, has been constant and rates pain 7/10 severity at present without radiation. Reports having history of similar pain in the past, was seen here in the past and had comprehensive work-up, treated for costochondritis with NSAIDs and steroid burst which she feels she needs again today. No fever, sick contacts, recent travel, ripping or tearing chest pain, shortness of breath, abdominal pain, dysuria. Review of Systems Review of Systems Fourteen body systems of review of systems have been reviewed. See HPI for pertinent positives and negative responses, other rodriguez all other systems are negative, non-pertinent or non-contributory Allergies Allergies Allergies Coded Allergies Type Severity Reaction Last Updated Verified amoxicillin Allergy Severe hives & rash 08/05/19 Yes clavulanic acid Allergy Severe hives & rash 08/05/19 Yes vancomycin Allergy Intermediate Rash 08/05/19 Yes Physical Exam Physical Exam Constitutional: Well developed, well nourished, no acute distress, non-toxic appearance. HENT: Normocephalic, atraumatic, bilateral external ears normal, oropharynx moist, no oral exudates, nose normal. Eyes: PERRLA, EOMI, conjunctiva normal, no discharge. Neck: Normal range of motion, no tenderness, supple, no stridor. Cardiovascular: Heart rate regular, sinus rhythm, no murmurs rubs or gallops Lungs & Thorax: Bilateral breath sounds clear to auscultation Abdomen: Bowel sounds normal, soft, no tenderness, no masses, no pulsatile masses. Nonsurgical abdomen, no peritoneal signs Skin: Warm, dry, no erythema, no rash. Back: No tenderness, no CVA tenderness. Extremities: No tenderness, no cyanosis, no clubbing, ROM intact, no edema. Neurologic: Alert and oriented X 3, grossly normal motor & sensory function, no focal deficits noted. Psychologic: Affect normal, judgement normal, mood normal. Current Patient Data Vital Signs Vital Signs Date Time Temp Pulse Resp B/P (MAP) Pulse Ox O2 Delivery O2 Flow Rate FiO2 12/16/20 09:12 98.3 87 23 118/67 (84) 98 Room Air Vital Signs Date Time Temp Pulse Resp B/P (MAP) Pulse Ox O2 Delivery O2 Flow Rate FiO2 12/16/20 09:12 98.3 87 23 118/67 (84) 98 Room Air Lab Results Laboratory Tests Test 12/16/20 09:27 Sodium Level 141 mmol/L Potassium Level 4.1 mmol/L Chloride Level 105 mmol/L Carbon Dioxide Level 25 mmol/L Anion Gap 11 Blood Urea Nitrogen 14 mg/dL Creatinine 0.9 mg/dL Estimated GFR (Cockcroft-Gault) 72.1 Glucose Level 125 mg/dL Calcium Level 8.4 mg/dL Troponin I Quantitative < 0.017 ng/mL DH-Nlb-S-Type Natriuretic Peptide 45 pg/mL Current Medications Medications (Trade) Dose Ordered Sig/Adan Route PRN Reason Start Time Stop Time Status Last Admin Dose Admin Aspirin (Roxana Aspirin) 325 mg 1X ONCE PO 12/16/20 09:45 12/16/20 09:46 DC 12/16/20 09:39 EKG EKG EKG ordered and interpreted by myself at 0925 hrs. as sinus rhythm at 68 bpm, unremarkable intervals, no axis deviation, no acute ischemic findings, no STEMI Radiology/Procedures Radiology/Procedures INDICATION: Reason: chest pain / Spl. Instructions: / History: COMPARISON: October 2018 FINDINGS: Single view of chest obtained. Cardiac silhouette is similar to prior. No definite focal airspace consolidation or pulmonary edema. IMPRESSION: * No focal airspace consolidation or edema. Electronically signed by: Sascha Quevedo MD (12/16/2020 9:49 AM) [id number] Heart Score C/O Chest Pain: Yes HEART Score for Chest Pain: HEART Score for Chest Pain Response (Comments) Value History Slighlty/Non-Suspicious 0 ECG Normal 0 Age < 45 0 Risk Factors 1 or 2 Risk Factors 1 Troponin < Normal Limit 0 Total 1 Risk Factors: Risk Factors: DM, Current or recent (<one month) smoker, HTN, HLP, family history of CAD, obesity. Risk Scores: Risk Factors: DM, Current or recent (<one month) smoker, HTN, HLP, family history of CAD, obesity. Course & Med Decision Making Course & Med Decision Making Discussed with the patient all findings and diagnostic testing. I discussed most likely diagnosis of likely noncardiac chest pain such as costochondritis that should resolve with supportive care practices. She is requesting steroid burst that helped her in the past, I do not think it is unreasonable to give low dose burst. I reviewed heart and PERC score, little indication for further diagnostic work-up and/or need for hospitalization at present. Nonetheless, I stressed need for close outpatient follow-up to review today's ER visit. I did disclose this might be an acute presentation of more concerning pathology and so, strict return precautions were also discussed at length with good understanding by patient. Patient voiced understanding and agreement with the plan. Patient knows to come back for repeat evaluation if concerning signs or symptoms present prior to outpatient follow-up. Hemodynamically stable, ambulatory and well-appearing at time of disposition. Dragon Disclaimer Dragon Disclaimer This electronic medical record was generated, in whole or in part, using a voice recognition dictation system. PERC Rule for PE PERC Rule for PE Response (Comments) Value Age > 50: No 0 Sa02 on room air <95%: No 0 Unilateral leg swelling: No 0 Hemoptysis: No 0 Recent surgery or trauma: No 0 Prior PE or DVT: No 0 Hormone use: No 0 Total 0 Departure Departure: Impression: Primary Impression: Chest pain, unspecified Disposition: 01 HOME / SELF CARE / HOMELESS Condition: STABLE Referrals: PCP,UNKNOWN (PCP) Patient Instructions: Chest Pain (Nonspecific), Costochondritis Additional Instructions: You were seen for chest pain. Your workup did not show any acute abnormalities today, but does not indicate that you do not have underlying cardiovascular disease. You have a history of costochondritis in the past, today might be a flare of this. As such, continued supportive care practices such as applying heating pads, Tylenol as needed for pain, Naprosyn which you have at home for pain, and close outpatient follow-up is advised. You do need to follow up with your primary doctor and/or can cleaner for further evaluation and treatment. You should return to the ED if you develop worsening chest pain, shortness of breath, fever, abnormal sweating, leg swelling, or any other new or concerning symptoms. It was a pleasure to take care of you and I wish you the best going forward Scripts Prednisone (PREDNISONE) 20 Mg Tablet 20 MG PO DAILY for chest pain for 4 Days, #4 TAB Prov: NATAN CLINE DO 12/16/20 NATAN CLINE DO Dec 16, 2020 09:15
[2020-12-16] MEDS ORDERED: ASPIRIN 325 MG TABLET PO ONE (09:45)
[2020-12-16 09:51] LABS: CALCIUM 8.4 mg/dL (8.5-10.1); CREATININE 0.9 mg/dL (0.6-1.0); GFR 72.1; POTASSIUM 4.1 mmol/L (3.5-5.1)
--- NOTE | 2020-12-16 09:51 | RAD ---
INDICATION: Reason: chest pain / Spl. Instructions: / History: COMPARISON: October 2018 FINDINGS: Single view of chest obtained. Cardiac silhouette is similar to prior. No definite focal airspace consolidation or pulmonary edema. IMPRESSION: * No focal airspace consolidation or edema. Electronically signed by: Sascha Quevedo MD (12/16/2020 9:49 AM) [id number]
[2020-12-16] MEDS ORDERED: PRED20TA PO (10:15)
[2020-12-16] MEDS ORDERED: ACETAMINOPHEN 325 MG TABLET PO ONE (10:15)
[2020-12-16] MEDS ORDERED: predniSONE 20 MG TABLET PO ONE (10:15)
[2020-12-16 10:20] LABS: BASO # 0.1 x10^3/uL (0.0-0.2); BASO % 1 % (0-3); EOS # 0.2 x10^3/uL (0.0-0.7); EOS % 3 % (0-3); HEMOGLOBIN 14.2 g/dL (12.0-15.5); LYMPH % 25 % (24-48); MEAN CORPUSCULAR HEMOGLOBIN 32 pg (25-35); MEAN CORPUSCULAR HGB CONC 34 g/dL (31-37); MEAN CORPUSCULAR VOLUME 93 fL (79-100); MONO # 0.5 x10^3/uL (0.0-1.1); MONO % 7 % (0-9); NEUT # 5.3 x10^3uL (1.8-7.7); NEUT % 65 % (31-73); PLATELET COUNT 143 x10^3/uL (140-400); RED BLOOD COUNT 4.53 x10^6/uL (3.50-5.40); RED CELL DISTRIBUTION WIDTH 13.1 % (11.5-14.5); WHITE BLOOD COUNT 8.2 x10^3/uL (4.0-11.0)
--- NOTE | 2020-12-16 11:41 | EKG ---
[address] [address] Test Date: 2020-12-16 Test Time: 09:20:41 Pat Name: DALTON BARRAGAN Department: Room: Gender: F Fund Accountant: BONNY : 1985 Requested By: NATAN CLINE Order Number: [id number] Reading MD: Measurements Intervals [place] Rate: 68 P: 34 [place]: 148 QRS: 26 QRSD: 80 T: 30 QT: 386 QTc: 415 Interpretive Statements SINUS RHYTHM NORMAL ECG RI6.02 No previous ECG available for comparison
== END 2020-12-16 10:29 | disposition home or self-care (01) ==
LOC: ER 08:58
DX: R07.89 Other chest pain (principal); F17.210 Nicotine dependence, cigarettes, uncomplicated; Z88.1 Allergy status to other antibiotic agents; Z90.49 Acquired absence of other specified parts of digestive tract
CPT/HCPCS: 36415; 71045; 80048; 83880; 84484; 85025; 93005; 99285-25

== ENCOUNTER 2021-05-17 05:21 | Emergency (ER) | payer OTHER ==
[~2021-05-17] VITALS: Ht 160 cm; Wt 89.3 kg
[~2021-05-17 05:21] MED LIST changes: +PRED20TA PO
[2021-05-17 05:34] VITALS: BP 117/92
--- NOTE | 2021-05-17 05:37 | PHYS DOC ---
Past History Past Medical History: Anxiety, Depression, Sinusitis, Other Additional Past Medical Histor: iud (SERGIO SANTOS MD) Past Surgical History: Cholecystectomy, Other Additional Past Surgical Histo: left knee (SERGIO SANTOS MD) Smoking: Cigarettes Alcohol Use: None Drug Use: None (SERGIO SANTOS MD) Adult General Chief Complaint Chief Complaint: SHOULDER INJURY HPI HPI Patient is a 36-year-old female that presents to the emergency department with a chief complaint of right shoulder pain, 7 out of 10, dull and achy in nature that is been going on a couple of months. Denies any recent travel, traumas, i llnesses, fevers, chest pain, shortness of breath, abdominal pain, nausea, vomiting. States has been taking Tylenol and ibuprofen with minimal relief. States she had seen a physician. (SERGIO SANTOS MD) Review of Systems Review of Systems Review of systems otherwise unremarkable except noted in HPI (SERGIO SANTOS MD) Allergies Allergies Allergies Coded Allergies Type Severity Reaction Last Updated Verified amoxicillin Allergy Severe hives & rash 08/05/19 Yes clavulanic acid Allergy Severe hives & rash 08/05/19 Yes vancomycin Allergy Intermediate Rash 08/05/19 Yes (SERGIO SANTOS MD) Physical Exam Physical Exam Constitutional: Well developed, well nourished, no acute distress, non-toxic appearance. [] HENT: Normocephalic, atraumatic, Neck: Normal range of motion, no tenderness, Cardiovascular:Heart rate regular rhythm, no murmur [] Lungs & Thorax: Bilateral breath sounds clear to auscultation [] Back: No tenderness, Extremities: Mild tenderness on passive and active range of motion with no obvious deformities, bruising, neurovascular exam intact Neurologic: Alert and oriented X 3, no focal deficits noted. [] Psychologic: Affect normal, judgement normal, mood normal. [] (SERGIO SANTOS MD) EKG EKG [] (SERGIO SANTOS MD) Radiology/Procedures Radiology/Procedures [] (SERGIO SANTOS MD) Impressions: RIGHT SHOULDER , 3 VIEWS Clinical Indication: Reason: pain Comparison: None. Findings: There is no acute fracture or dislocation. The acromioclavicular and glenohumeral joints are intact. The visualized lung is clear. There is no evidence of a displaced rib fracture. There is no soft tissue abnormality. IMPRESSION: No acute fracture or dislocation. Electronically signed by: Patricio New MD (05/17/2021 6:05 AM) [facility] DICTATED AND SIGNED BY: PATRICIO NEW MD DATE: 05/17/21 0604 CC: KAZ CARSON DO; SERGIO SANTOS MD; PCP,UNKNOWN ~MTH0 0 (KAZ CARSON DO) Heart Score C/O Chest Pain: No Risk Factors: Risk Factors: DM, Current or recent (<one month) smoker, HTN, HLP, family history of CAD, obesity. Risk Scores: Risk Factors: DM, Current or recent (<one month) smoker, HTN, HLP, family history of CAD, obesity. (SERGIO SANTOS MD) Course & Med Decision Making Course & Med Decision Making Patient is a 36-year-old female who presents with right shoulder pain Vital signs not concerning. Physical exam noted above. Given ice and pain medicine. [] (SERGIO SANTOS MD) Course & Med Decision Making The patient's shoulder x-ray is unremarkable. The patient has pain along the supraspinatus distribution but also talks about a feeling of generalized weakness down the arm affecting all 5 fingers. It appears to go down the palmar side of the forearm. She occasionally has a shooting pain type situation. I have discussed with her the possibility that it could be nerve irritation anywhere along that route from the carpal tunnel up to her cervical spine. We will try a 7-day course of prednisone. She will follow-up with her primary care physician and consider physical therapy and/or neurological consult if the symptoms do not improve. She is stable for discharge at this time. (KAZ CARSON DO) Dragon Disclaimer Dragon Disclaimer This electronic medical record was generated, in whole or in part, using a voice recognition dictation system. (SERGIO SANTOS MD) Departure Departure: Impression: Primary Impression: Shoulder pain Disposition: HOME / SELF CARE / HOMELESS Condition: GOOD Referrals: PCP,UNKNOWN (PCP) DAMION WATKINS Patient Instructions: RICE - Routine Care for Injuries Scripts Prednisone (PREDNISONE) 10 Mg Tablet 10 MG PO UD for PREDNISONE TAPER, #21 TAB 0 Refills Take 4 tablets by mouth daily for 3 days, then take 3 tablets by mouth aily for 2 days, then take 2 tablet by mouth daily for 1 day, then take 1 tablet by mouth daily for 1 day, then stop. Prov: KAZ CARSON DO 05/17/21 SERGIO SANTOS MD May 17, 2021 05:37 KAZ CARSON DO May 17, 2021 06:15
[2021-05-17] MEDS ORDERED: IBUPROFEN 600 MG TABLET. PO ONE (06:00)
[2021-05-17] MEDS ORDERED: ACETAMINOPHEN 500 MG TABLET PO ONE (06:00)
--- NOTE | 2021-05-17 06:08 | RAD ---
RIGHT SHOULDER , 3 VIEWS Clinical Indication: Reason: pain Comparison: None. Findings: There is no acute fracture or dislocation. The acromioclavicular and glenohumeral joints are intact. The visualized lung is clear. There is no evidence of a displaced rib fracture. There is no soft tiss ue abnormality. IMPRESSION: No acute fracture or dislocation. Electronically signed by: Patricio New MD (05/17/2021 6:05 AM) [facility]
[2021-05-17] MEDS ORDERED: PRED-220 PO (06:28)
== END 2021-05-17 06:34 | disposition home or self-care (01) ==
LOC: ER 05:21
DX: M25.511 Pain in right shoulder (principal); F41.9 Anxiety disorder, unspecified; F32.9 Major depressive disorder, single episode, unspecified; F17.210 Nicotine dependence, cigarettes, uncomplicated; Z88.1 Allergy status to other antibiotic agents; Z88.8 Allergy status to other drugs, medicaments and biological substances
CPT/HCPCS: 73030; 99283

== ENCOUNTER 2021-08-02 20:20 | Emergency (ER) | payer OTHER ==
[~2021-08-02] VITALS: Ht 160 cm; Wt 89.3 kg
[2021-08-02 20:27] VITALS: BP 128/79
[2021-08-02] MEDS ORDERED: oxyCODONE/APAP 5/325 1 TAB TABLET PO ONE (21:00)
[2021-08-02] MEDS ORDERED: ACETAMINOPHEN 325 MG TABLET PO ONE ×2 (21:00→21:09)
--- NOTE | 2021-08-02 21:03 | PHYS DOC ---
Past History Past Medical History: Anxiety, Depression, Sinusitis, Other Additional Past Medical Histor: iud Past Surgical History: Cholecystectomy, Other Additional Past Surgical Histo: left knee Smoking: Cigarettes Alcohol Use: Occasionally Drug Use: None Adult General Chief Complaint Chief Complaint: ANKLE PROBLEM [facility] HPI Patient is a 36-year-old female who presents after slipping on the stairs with right ankle pain, 6 out of 10, dull and achy in nature. Denies any other injuries. States she is able to walk but it causes discomfort. Didn't take any medications or use any ice. Review of Systems Review of Systems Constitutional: Denies fever or chills [] Eyes: Denies change in visual acuity, redness, or eye pain [] HENT: Denies nasal congestion or sore throat [] Respiratory: Denies cough or shortness of breath [] Cardiovascular: No additional information not addressed in HPI [] GI: Denies abdominal pain, nausea, vomiting, bloody stools or diarrhea [] : Denies dysuria or hematuria [] Musculoskeletal: Denies back pain or joint pain [] Integument: Denies rash or skin lesions [] Neurologic: Denies headache, focal weakness or sensory changes [] Endocrine: Denies polyuria or polydipsia [] All other systems were reviewed and found to be within normal limits, except as documented in this note. Allergies Allergies Allergies Coded Allergies Type Severity Reaction Last Updated Verified amoxicillin Allergy Severe hives & rash 05/17/21 Yes clavulanic acid Allergy Severe hives & rash 05/17/21 Yes vancomycin Allergy Intermediate Rash 05/17/21 Yes Physical Exam Physical Exam Constitutional: Well developed, well nourished, no acute distress, non-toxic appearance. [] HENT: Normocephalic, atraumatic, bilateral external ears normal, oropharynx moist, no oral exudates, nose normal. [] Skin: Warm, dry, no erythema, no rash. [] Extremities: Neurovascular exam intact, mild tenderness on anterior right ankle in between lateral and medial malleolus with no obvious deformities or bruising normal range of motion Neurologic: Alert and oriented X 3, normal motor function, normal sensory function, no focal deficits noted. [] Psychologic: Affect normal, judgement normal, mood normal. [] Current Patient Data Vital Signs Vital Signs Date Time Temp Pulse Resp B/P (MAP) Pulse Ox O2 Delivery O2 Flow Rate FiO2 08/02/21 20:27 98.9 83 18 128/79 (95) 99 Room Air EKG EKG [] Radiology/Procedures Radiology/Procedures [] Heart Score C/O Chest Pain: No Risk Factors: Risk Factors: DM, Current or recent (<one month) smoker, HTN, HLP, family history of CAD, obesity. Risk Scores: Risk Factors: DM, Current or recent (<one month) smoker, HTN, HLP, family history of CAD, obesity. Course & Med Decision Making Course & Med Decision Making Patient is a 36-year-old female who presents with ankle and knee pain after slipping on the stairs Vital signs not concerning. Physical exam noted above. Given ice and pain medicine. Imaging with no obvious acute osseous abnormalities. Discussed findings with patient. Discussed symptom management at home. Advised to follow-up with primary care as needed. Gave return precautions to the ED. Patient grateful, verbalized understanding and agreed with plan of discharge. [] Dragon Disclaimer Dragon Disclaimer This electronic medical record was generated, in whole or in part, using a voice recognition dictation system. Departure Departure: Impression: Primary Impression: Ankle pain Additional Impression: Knee pain Disposition: HOME / SELF CARE / HOMELESS Condition: GOOD Referrals: LUCA SANDERS (PCP) Patient Instructions: RICE - Routine Care for Injuries Additional Instructions: Thank you for coming into the emergency department tonight and allowing us to take care of you. Please read the attached information carefully to go over things we discussed. You continue Tylenol, ibuprofen and ice as tolerated as long as you are not allergic. Please follow-up with your primary care physician in the morning to update on your ED visit and return to the ED with new or concerning symptoms as discussed. Problem Qualifiers SERGIO SANTOS MD Aug 02, 2021 21:03
[2021-08-02] MEDS ORDERED: oxyCODONE/APAP 5/325 1 TAB TABLET ONE (21:10)
--- NOTE | 2021-08-02 22:36 | RAD ---
Exam: Right tibia and fibula 2 views. Right knee 3 views. Right ankle 3 views INDICATION: Fall, right ankle pain TECHNIQUE: Frontal and lateral views of the right tibia and fibula. Frontal, lateral oblique views of the right knee and right ankle Comparisons: None FINDINGS: Knee: Bone mineralization is normal. No acute or healed fractures. Soft tissues are unremarkable. Joint [facility] are well-maintained. Tibia fibula: Bone mineralization is normal. No acute or healed fractures. Soft tissues are unremarkable. Joint [facility] are well-maintained. Ankle: Bone mineralization is normal. No acute or healed fractures. Soft tissues are unremarkable. Joint [facility] are well-maintained. IMPRESSION: 1. No acute osseous abnormality of the right knee. 2. No acute osseous abnormality of the right tibia and fibula. 3. No acute osseous abnormality of the right ankle. Electronically signed by: Natalia Pinon MD (08/02/2021 10:33 PM) ANNIE
== END 2021-08-02 22:20 | disposition home or self-care (01) ==
LOC: ER 20:20
DX: M25.571 Pain in right ankle and joints of right foot (principal); M25.562 Pain in left knee; F17.210 Nicotine dependence, cigarettes, uncomplicated; Z88.1 Allergy status to other antibiotic agents
CPT/HCPCS: 73562; 73590; 73610; 99284